=== PATIENT | male | born 1950 | race Two or more races ===

== ENCOUNTER 2018-01-18 16:36 | Emergency (ER) | payer SELFPAY ==
[~2018-01-18] VITALS: Ht 167.6 cm; Wt 59.0 kg
[2018-01-18 17:00] VITALS: BP 130/95
[2018-01-18] MEDS ORDERED: Tetanus/Diptheria/Pertussis Vaccine 0.5ml Syr IM ONE (17:00)
--- NOTE | 2018-01-18 17:43 | Emergency Room Report ---
History of Present Illness General Chief Complaint: Alcohol Intoxication Source: Patient, EMS Present Illness HPI Patient brought by EMS after he has been drinking today. He has a laceration of the left side of his forehead. He can't tell us how this occurred. He states he has some tenderness there but won't rate what it is. He states his greater than 10 years for his last tetanus. The patient is not answering most questions. Allergies: Coded Allergies: No Known Allergies (Unverified , 01/18/18) Patient History Limited by: medical condition Past Medical History: see triage record Social History: Reports: alcohol use Social History Narrative states he works, but won't state job Reviewed Nursing Documentation: PMH: Agreed, PSxH: Agreed Review of Systems All Other Systems: limited Physical Exam Vital Signs Date Time Temp Pulse Resp B/P (MAP) Pulse Ox O2 Delivery O2 Flow Rate FiO2 01/18/18 16:34 97.8 78 16 130/9 98 97.9 Sp02 EP Interpretation: reviewed, normal General Appearance: well appearing, no apparent distress, other - GCS 14 Head: normocephalic, other - 1 cm laceration L eyebrow Eyes: bilateral eye PERRL, bilateral eye Scleral Injection ENT: moist mucus membranes - poor dentition Neck: full range of motion, supple, no bony tend Respiratory: chest non-tender, lungs clear, normal breath sounds Cardiovascular #1: regular rate, rhythm, no edema Cardiovascular #2: 2+ radial (R) Gastrointestinal: normal inspection, normal bowel sounds, non tender, no mass, non-distended Musculoskeletal: back normal, normal range of motion Neurologic: alert, motor strength/tone normal, sensory intact, speech normal, other - ataxia, oriented - X2 Psychiatric: other - poor judgement Reflexes: 2+ knee (R), 2+ knee (L) Skin: warm/dry, laceration - L eyebrow Procedures Laceration/Wound Repair Laceration/Wound Repair : Consent: Verbal Wound Location: face Wound's Depth, Shape: into muscle Wound Length (cm): 1 Wound Explored: clean Irrigated w/ Saline (ccs): 10 Betadine Prep?: Yes Wound Debrided: None Wound Repaired With: Dermabond Layer Closure?: No Sterile Dressing Applied?: No Patient Tolerated: Well Complications: None Medical Decision Making Medical: Alcohol Abuse Behavioral: Other - subdurals Reaction to Intervention: No change Restraint Reassesment Still attempting to leave. Needs transfer to [facility]. Continued NB restraints Diagnostic Impression: Primary Impression: Subdural hematoma Additional Impressions: Subdural hygroma Acute alcoholic intoxication Qualified Codes: F10.929 - Alcohol use, unspecified with intoxication, unspecified Head trauma Qualified Codes: S09.90XA - Unspecified injury of head, initial encounter Facial laceration Qualified Codes: S01.81XA - Laceration without foreign body of other part of head, initial encounter ER Course Patient presents with facial head trauma after drinking alcohol. Differential includes a brain bleed, contusion after he has a laceration over left eyebrow that needs repair. This will be done with Dermabond. CT head is indicated. There's no neck pain at this time. Patient with unsteady gait. Trying to leave. Patient restrained - non- behavioral. Not heed direction. Repaired L eyebrow laceration with dermabond. CT with hygromas vs subdurals. Concern over mass effect (regarding chronicity). Sending CT to [facility] and discussing with trauma and neurosurgery. Labs ordered. Presented to [facility]. Accepted in transfer Dr. Phillips, trauma and Dr. Rodriguez, neurosurgery. Explained problem (in Yoruba) to patient multiple times. He does not grasp the seriousness of the problem. Patient stable for transfer [facility]. Laboratory Tests Test 01/18/18 23:23 White Blood Count 5.9 K/UL (4.8-10.8) Red Blood Count 4.73 M/UL (4.70-6.10) Hemoglobin 15.6 G/DL (14.2-18.0) Hematocrit 44.0 % (42.0-52.0) Mean Corpuscular Volume 93 FL (80-99) Mean Corpuscular Hemoglobin 33.0 PG (27.0-31.0) H Mean Corpuscular Hemoglobin Concent 35.5 G/DL (32.0-36.0) Red Cell Distribution Width 12.6 % (11.6-14.8) Platelet Count 226 K/UL (150-450) Mean Platelet Volume 7.7 FL (6.5-10.1) Neutrophils (%) (Auto) 67.4 % (45.0-75.0) Lymphocytes (%) (Auto) 20.2 % (20.0-45.0) Monocytes (%) (Auto) 7.6 % (1.0-10.0) Eosinophils (%) (Auto) 3.9 % (0.0-3.0) H Basophils (%) (Auto) 0.9 % (0.0-2.0) Prothrombin Time 10.6 SEC (9.30-11.50) Prothrombin Time INR 1.0 (0.9-1.1) PTT 29 SEC (23-33) Sodium Level 149 MMOL/L (136-145) H Potassium Level 3.5 MMOL/L (3.5-5.1) Chloride Level 110 MMOL/L (98-107) H Carbon Dioxide Level 29 MMOL/L (21-32) Anion Gap 10 mmol/L (5-15) Blood Urea Nitrogen 11 mg/dL (7-18) Creatinine 0.8 MG/DL (0.55-1.30) Estimate Glomerular Filtration Rate > 60 mL/min (>60) Glucose Level 92 MG/DL (74-106) Calcium Level 8.2 MG/DL (8.5-10.1) L Total Bilirubin 0.5 MG/DL (0.2-1.0) Aspartate Amino Transferase (AST) 25 U/L (15-37) Alanine Aminotransferase (ALT) 21 U/L (12-78) Alkaline Phosphatase 79 U/L (46-116) Total Creatine Kinase 244 U/L (26-308) Troponin I 0.000 ng/mL (0.000-0.056) Total Protein 6.8 G/DL (6.4-8.2) Albumin 3.3 G/DL (3.4-5.0) L Globulin 3.5 g/dL Albumin/Globulin Ratio 0.9 (1.0-2.7) L Serum Alcohol 213 mg/dL EKG Diagnostic Results Rate: normal Rhythm: NSR ST Segments: no acute changes - RBBB Rhythm Strip Diag. Results EP Interpretation: yes Rhythm: NSR, no PVC's, no ectopy CT/MRI/US Diagnostic Results CT/MRI/US Diagnostic Results : Imaging Test Ordered: head Impression Bilateral subdural hygromas vs hematomas L>R (14 vs 11 mm) with effacement and mass effect. No fx. Last Vital Signs Date Time Temp Pulse Resp B/P (MAP) Pulse Ox O2 Delivery O2 Flow Rate FiO2 2/26/18 02:49 98.3 76 16 134/77 96 Room Air 98.3 Status: improved Disposition: XFER SHT-TRM HOSP Condition: Serious Sergio Jones M.D. Jan 18, 2018 17:43
[2018-01-18 18:30] VITALS: BP 130/80
[2018-01-18 20:13] VITALS: BP 132/82
[2018-01-18 23:55] LABS: BASOPHILS % (AUTO) 0.9 % (0.0-2.0); EOSINOPHILS % (AUTO) 3.9 % (0.0-3.0); HEMOGLOBIN 15.6 G/DL (14.2-18.0); LYMPHOCYTES % (AUTO) 20.2 % (20.0-45.0); MEAN CORPUSCULAR VOLUME 93 FL (80-99); MONOCYTES % (AUTO) 7.6 % (1.0-10.0); NEUTROPHILS % (AUTO) 67.4 % (45.0-75.0); PLATELET COUNT 226 K/UL (150-450); RED BLOOD COUNT 4.73 M/UL (4.70-6.10); RED CELL DISTRIBUTION WIDTH 12.6 % (11.6-14.8); WHITE BLOOD COUNT 5.9 K/UL (4.8-10.8)
[2018-01-19 00:05] LABS: ANION GAP 10 mmol/L (5-15); BLOOD UREA NITROGEN 11 mg/dL (7-18); CALCIUM 8.2 MG/DL (8.5-10.1); CARBON DIOXIDE 29 MMOL/L (21-32); CHLORIDE 110 MMOL/L (98-107); CREATININE 0.8 MG/DL (0.55-1.30); POTASSIUM 3.5 MMOL/L (3.5-5.1); SODIUM 149 MMOL/L (136-145)
[2018-01-19 00:10] LABS: ALANINE AMINOTRANSFERASE 21 U/L (12-78); ALBUMIN 3.3 G/DL (3.4-5.0); ALBUMIN/GLOBULIN RATIO 0.9 (1.0-2.7); ALKALINE PHOSPHATASE 79 U/L (46-116); ASPARTATE AMINO TRANSFERASE 25 U/L (15-37); BILIRUBIN,TOTAL 0.5 MG/DL (0.2-1.0); CREATINE KINASE 244 U/L (26-308)
[2018-01-19 00:17] VITALS: BP 152/82
[2018-01-19 02:39] VITALS: BP 134/77
[2018-01-19 02:49] VITALS: BP 134/77
--- NOTE | 2018-01-19 10:09 | Diagnostic Imaging Report ---
Indication: Headache Technique: Contiguous 5 mm thick transaxial imaging of the head obtained in a Siemens Sensation [address] scanner. Soft tissue and bone windows generated. Automatic Exposure Control was utilized. Total Dose length Product (DLP): 3789.[address] Dose Index Volume (CTDIvol): 70.38,70.38,70.38 mGy Comparison: none Findings: There are hypodense CSF attenuation bilateral cerebral fluid collections probably chronic subdural hematoma slightly larger on the left compared to the right. There are no reference prior studies for comparison. Generalized atrophy of the cerebrum is present. Generalized atrophy of the cerebellum also noted. There is no edema. There may be slight compression of the underlying cerebrum. There is no midline shift. Ventricles and basal cisterns appear normal. There is left periorbital soft tissue swelling present. There is a probable nasal fracture acuity indeterminate. Minimal mucosal thickening noted within paranasal sinuses. 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 Suggest follow-up as warranted clinically. Left periorbital soft tissue contusion. Nasal fracture, acuity indeterminate. Mild sinusitis [facility] has communicated the preliminary results to the Emergency Department. Their findings are largely concordant with this report. The CT scanner at [facility] is accredited by the [employer] and the scans are performed using dose optimization techniques as appropriate to a performed exam including Automatic Exposure control.
--- NOTE | 2018-01-21 20:14 | Cardiology Report ---
APPROVED REPORT EKG Measurement Heart [id number] Normal sinus rhythm Right bundle branch block Abnormal ECG
== END 2018-01-19 02:50 | disposition short-term general hospital (02) ==
LOC: EDBD 16:36 → EMR 16:45
DX: S06.5X0A Traumatic subdural hemorrhage without loss of consciousness, initial encounter (principal); S01.112A Laceration without foreign body of left eyelid and periocular area, initial encounter; W19.XXXA Unspecified fall, initial encounter; Y92.410 Unspecified street and highway as the place of occurrence of the external cause; Z23 Encounter for immunization; D18.1 Lymphangioma, any site; J32.9 Chronic sinusitis, unspecified; F10.129 Alcohol abuse with intoxication, unspecified
CPT/HCPCS: 12011; 36415; 70450; 80053; 82550; 84484; 85025; 85610; 85730; 90471; 90715; 93005; 99285; G0480; 80329